=== PATIENT | male | born 1970 | race Caucasian/White ===

== ENCOUNTER 2023-04-19 09:37 | Day surgery (SDC) | payer OTHER ==
[~2023-04-19] VITALS: Ht 165.1 cm; Wt 68.0 kg
[2023-04-19] MEDS ORDERED: LIDOCAINE 2% 100 MG/5 ML UJET TP ONE (12:27)
[2023-04-19] MEDS ORDERED: fentaNYL citrate 0.05 MG/ML VIAL ONE (12:27)
[2023-04-19] MEDS ORDERED: fentaNYL citrate 0.05 MG/ML VIAL IVP ONE (13:30)
== END 2023-04-19 13:55 | disposition home or self-care (01) ==
LOC: MMU 09:37 → MOR 09:37
PROVIDERS: ATTEND Internal Medicine Gastroenterology
DX: Z12.11 Encounter for screening for malignant neoplasm of colon (principal); K62.1 Rectal polyp
CPT/HCPCS: 45385; J3010